=== PATIENT | male | born 1960 | race Caucasian/White ===

== ENCOUNTER → 2017-01-06 | Outpatient (CLI) | payer OTHER ==
[~2017-01-06] MED LIST: ASPI81TA28 PO; CITA20TA4 PO; DOXY-300 PO; DXY100 PO; FENO145T26 PO; FOLI1TAB7 PO; HYPO0.01 EXT; HYZ/50125 PO; LCTX PO; LISI-787 PO; PRED1SUS OPL; PRLSR20 PO
[2017-01-06 16:31] LABS: SYNOVIAL FLUID APPEARANCE CLOUDY; SYNOVIAL FLUID COLOR AMBER; SYNOVIAL FLUID MONONUC RELAT 11.2 %; SYNOVIAL FLUID POLYNUC RELAT 88.8 %
== END | disposition home or self-care (01) ==
LOC: C.LAB 14:54
DX: M70.41 Prepatellar bursitis, right knee (principal)

== ENCOUNTER 2017-01-08 00:18 | Inpatient (IN) | payer OTHER ==
[2017-01-08] VITALS (8 sets, daily range): BP systolic 135–170; BP diastolic 88–108; PULSE 55–65; TEMP 36.4–37; O2SAT 96–100; Ht 180.3 cm; Wt 110.6 kg
[~2017-01-08] VITALS: Ht 180.3 cm; Wt 110.6 kg
[~2017-01-08 00:18] MED LIST changes: -ASPI81TA28 PO; -DXY100 PO; -FENO145T26 PO; -FOLI1TAB7 PO; -HYZ/50125 PO; -LCTX PO
[2017-01-08] MEDS ORDERED: VANCOMYCIN 1GM/270ML NSS IV STA (00:37)
[2017-01-08] MEDS ORDERED: SODIUM CHLORIDE 0.9% 1000ML 1,000 ML IV STA (00:37)
[2017-01-08] MEDS ORDERED: KETOROLAC TROMETHAMINE 30 MG/ML VIAL IV STA (00:37)
[2017-01-08] MEDS ORDERED: FENO145T26 PO (01:01)
[2017-01-08] MEDS ORDERED: FOLI1TAB7 PO (01:01)
[2017-01-08] MEDS ORDERED: ASPI81TA28 PO (01:01)
[2017-01-08] MEDS ORDERED: HYZ/50125 PO (01:02)
[2017-01-08 01:08] LABS: BASO % 0.2 %; BASO ABS # 0.03 K/uL (0-0.2); COMPLETE YES; EOS % 0.6 %; HEMATOCRIT 44.8 % (42-52); IG% 0.4 %; LYMPH % 14.6 %; LYMPH ABS # 1.88 K/uL (1.2-3.4); MEAN CELL VOLUME 87.7 fL (80-100); MEAN CORPUSCULAR HEMOGLOBIN 31.1 pg (25-34); MEAN CORPUSCULAR HGB CONC 35.5 g/dl (32-36); MEAN PLATELET VOLUME 10.8 fL (7.4-10.4); MONO % 11.8 %; NEUT % 72.4 %; PLATELET COUNT 149 K/uL (130-400); RED BLOOD COUNT 5.11 M/uL (4.7-6.1); WHITE BLOOD COUNT 12.92 K/uL (4.8-10.8)
[2017-01-08 01:26] LABS: BUN/CREATININE RATIO 12.3 (10-20); CALCIUM 8.8 mg/dl (8.5-10.1); CREATININE 1.1 mg/dl (0.60-1.40); POTASSIUM 3.6 mmol/L (3.5-5.1)
--- NOTE | 2017-01-08 02:43 | History and Physical ---
History & Physical Date & Time of Service: Jan 08, 2017 at 02:43 . Chief Complaint: right knee pain . Primary Care Physician: Mg Jordan PA-C . History of Present Illness Source: patient, clinic records, hospital records 56-year-old male followed by Mg Jordan PA-C in [place]. History of hypertension, dyslipidemia, and other problems noted below. Fell 4 days prior to admission while playing with his grandchild at a playground and injured his right knee. No apparent abrasions or lacerations. Evaluated in ED at [facility] 2 days prior to admission. Referred to Dr. Kaba for Orthopedics consultation and was seen in his clinic yesterday. Right knee was aspirated and patent was placed on cephalexin. Aspirate demonstrated 60-49 WBCs (89% polys), 9000 RBCs. Gram stain demonstrated a few WBCs, no organisms. Culture results pending. Today he experienced worsening swelling and pain of the knee as well as fever and myalgias. Pain is severe and constant, aggravated by weightbearing or flexion. Minimal relief with ibuprofen. . Past Medical/Surgical History Chronic and Resolved Medical Problems: (2) Dyslipidemia Status: Chronic (3) GERD (gastroesophageal reflux disease) Status: Chronic (4) History of DVT of lower extremity Permanent Comment: 2013 - left lower extremity, associated with Achilles tendon repair Status: Chronic (5) History of renal calculi Status: Chronic (6) Hypertension Status: Chronic (7) MTHFR mutation Status: Chronic (8) Sleep apnea Status: Chronic Surgical Problems: (1) Status post Achilles tendon repair Status: Chronic (2) Status post cystoscopy Status: Chronic . Family History FATHER Coronary artery disease MOTHER Hypercholesterolemia Parkinson's disease Hypertension BROTHER Hypertension SISTER MTHFR deficiency Social History Smoking Status: Never Smoker Alcohol Use: none Marital Status: Immunizations History of Influenza Vaccine: Yes History of Tetanus Vaccine?: Yes Allergies Coded Allergies: Atenolol (Verified Allergy, Intermediate, bradycardia, 01/08/17) Lisinopril (Verified Allergy, Mild, cough, 01/08/17) Statins (Verified Adverse Reaction, Unknown, GENERALIZED PAIN, 01/08/17) Home Medications Scheduled Aspirin (Aspirin Ec), 81 MG PO DAILY Citalopram Hydrobromide (Citalopram Hydrobromide), 1 TAB PO DAILY Fenofibrate (Tricor ), 145 MG PO DAILY Folic Acid (Folvite), 1 MG PO DAILY Hctz/Losartan (Hyzaar 12.5MG/50MG), 1 TAB PO DAILY Omeprazole (Prilosec), 20 MG PO DAILY Review of Systems Constitutional: + fever, No weight loss Eyes: No worsening of vision, No diplopia ENT: + nasal symptoms, No sore throat Respiratory: No cough, No shortness of breath Cardiovascular: + edema (intermittent swelling left leg since DVT), No chest pain Abdomen: + nausea, No pain, No vomiting, No diarrhea, No GI bleeding Musculoskeletal: + joint pain (right knee), + muscle pain Genitourinary - Male: No hematuria, No dysuria Neurologic: + problem reported (occasional headaches) Endocrine: No excessive thirst, No excessive urination Hematologic / Lymphatic: No abnormal bleeding/bruising Integumentary: No rash, No new/changing skin lesions Physical Exam Vital Signs Date Time Temp Pulse Resp B/P (MAP) Pulse Ox O2 Delivery O2 Flow Rate FiO2 01/08/17 00:27 38.1 84 18 168/119 96 Room Air General Appearance: WD/WN, no apparent distress Head: normocephalic, atraumatic Eyes: normal inspection, PERRL, EOMI, sclerae normal (conjunctivae pink) ENT: normal ENT inspection, hearing grossly normal, pharynx normal Neck: supple, no adenopathy, thyroid normal, no JVD, trachea midline Respiratory/Chest: lungs clear, no respiratory distress, no accessory muscle use Cardiovascular: regular rate, rhythm, no edema, no gallop, no JVD, no murmur, normal peripheral pulses Abdomen/GI: normal bowel sounds, non tender, soft, no organomegaly, no pulsatile mass Extremities/Musculoskelatal: no calf tenderness, normal capillary refill, no pedal edema, + pertinent finding (moderate right prepatellar effusion with overlying erythema and warmth) 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 (PERRL, EOMI; no facial palsy; no dysarthria), no motor/sensory deficits (motor strength upper and lower extremities grossly intact), alert, normal mood/affect, normal reflexes ( plantar reflexes downgoing), oriented x 3 Skin: warm/dry, + pertinent finding (intense erythema overlying right knee) Lymphatic: no adenopathy (cervical) Diagnostics Laboratory Results Results Past 24 Hours Test 01/08/17 00:45 Range/Units White Blood Count 12.92 4.8-10.8 K/uL Red Blood Count 5.11 4.7-6.1 M/uL Hemoglobin 15.9 14.0-18.0 g/dL Hematocrit 44.8 42-52 % Mean Corpuscular Volume 87.7 80-100 fL Mean Corpuscular Hemoglobin 31.1 25-34 pg Mean Corpuscular Hemoglobin Concent 35.5 32-36 g/dl Platelet Count 149 130-400 K/uL Mean Platelet Volume 10.8 7.4-10.4 fL Neutrophils (%) (Auto) 72.4 % Lymphocytes (%) (Auto) 14.6 % Monocytes (%) (Auto) 11.8 % Eosinophils (%) (Auto) 0.6 % Basophils (%) (Auto) 0.2 % Neutrophils # (Auto) 9.35 1.4-6.5 K/uL Lymphocytes # (Auto) 1.88 1.2-3.4 K/uL Monocytes # (Auto) 1.53 0.11-0.59 K/uL Eosinophils # (Auto) 0.08 0-0.5 K/uL Basophils # (Auto) 0.03 0-0.2 K/uL RDW Standard Deviation 39.9 36.4-46.3 fL RDW Coefficient of Variation 12.4 11.5-14.5 % Immature Granulocyte % (Auto) 0.4 % Immature Granulocyte # (Auto) 0.05 0.00-0.02 K/uL Sodium Level 138 136-145 mmol/L Potassium Level 3.6 3.5-5.1 mmol/L Chloride Level 103 98-107 mmol/L Carbon Dioxide Level 26 21-32 mmol/L Anion Gap 9.0 3-11 mmol/L Blood Urea Nitrogen 14 7-18 mg/dl Creatinine 1.10 0.60-1.40 mg/dl Est Creatinine Clear Calc Drug Dose 93.4 ml/min Estimated GFR () 85.9 Estimated GFR (Non- 74.1 BUN/Creatinine Ratio 12.3 10-20 Random Glucose 170 70-99 mg/dl Calcium Level 8.8 8.5-10.1 mg/dl Microbiology Results 01/08/17 Blood Culture, Received Pending 01/08/17 Blood Culture, Received Pending Impression Assessment and Plan FEVER / RIGHT KNEE PAIN Suspect prepatellar bursitis. Worsening symptoms and exam despite outpatient therapy with cephalexin. Culture from right knee aspirate 01/06 pending. Temp in ED was 38.1. WBC 12,920. Hemodynamically stable. Does not appear to be septic. Blood cultures obtained in ED and patient received IV vancomycin. Continue vancomycin and add ceftriaxone for gram-negative coverage. Consult Orthopedics and Infectious Disease. HYPERTENSION Initial BP in ED 168/119, repeat 160/92. Continue losartan/HCTZ. Follow and titrate therapy. SLEEP APNEA Intolerant of CPAP. DYSLIPIDEMIA Continue fenofibrate. MTHFR MUTATION Continue folic acid. VTE PROPHYLAXIS / HISTORY DVT History of MTHFR mutation. History of DVT left lower extremity associated with repair of Achilles tendon. Initial prophylaxis with SCDs and ambulation. Add prophylactic dose anticoagulant once surgical disposition determined. RESUSCITATION STATUS Discussed with patient. No living will. Full code. DISPOSITION Admit to Med-Surg Unit. Expected discharge to home. Medical follow-up with Mg Jordan PA-C. . VTE Prophylaxis Given or contraindicated: SCD's
[2017-01-08] MEDS ORDERED: ACETAMINOPHEN 325 MG TAB PO PRN (02:45)
--- NOTE | 2017-01-08 03:23 | EMERGENCY ROOM VISIT NOTE ---
History Report prepared by Cyndee: Ilene Mayberry Under the Supervision of: Dr. Chad Huff D.O. First contact with patient: 00:32 Chief Complaint: KNEEPAIN Stated Complaint: KNEE PAIN History of Present Illness The patient is a 56 year old male who presents to the Emergency Room with complaints of worsening right knee pain starting 5 days ago. The patient fell while at the playground 5 days ago and fell onto his right knee. He had some pain at that time. He did not have any cuts. The pain improved, but then 2 days later he started having more pain. He went to the ED in [place] and was referred to ortho. He saw Dr. Kaba who jodie some fluid from the knee and started the patient on Keflex for infection. He started the Keflex 2 days ago. Today he had increased redness, swelling, and pain. He also developed a fever. He called his doctor who referred him to the ED. The pain worsens with movement. He has a history of DVT in his left leg after surgery. He denies any history of diabetes. Source of History: patient Onset: 5 days ago Position: knee (right) Quality: other (pain) Timing: worsening Modifying Factors (Worsening): movement Associated Symptoms: + fevers Note: Pt reports knee redness and swelling. Review of Systems See HPI for pertinent positives & negatives. A total of 10 systems reviewed and were otherwise negative. Past Medical & Surgical Medical Problems: (1) DVT (deep venous thrombosis) (2) Knee pain Family History No pertinent family history stated. Social History Smoking Status: Never Smoker Marital Status: Occupation Status: employed Current/Historical Medications Scheduled Aspirin (Aspirin Ec), 81 MG PO DAILY Citalopram Hydrobromide (Citalopram Hydrobromide), 1 TAB PO DAILY Fenofibrate (Tricor ), 145 MG PO DAILY Folic Acid (Folvite), 1 MG PO DAILY Hctz/Losartan (Hyzaar 12.5MG/50MG), 1 TAB PO DAILY Omeprazole (Prilosec), 20 MG PO DAILY Allergies Coded Allergies: Atenolol (Verified Allergy, Intermediate, bradycardia, 01/08/17) Lisinopril (Verified Allergy, Mild, cough, 01/08/17) Statins (Verified Adverse Reaction, Unknown, GENERALIZED PAIN, 01/08/17) Physical Exam Vital Signs Date Time Temp Pulse Resp B/P (MAP) Pulse Ox O2 Delivery O2 Flow Rate FiO2 01/08/17 00:27 38.1 84 18 168/119 96 Room Air Physical Exam CONSTITUTIONAL/VITAL SIGNS: Reviewed / noted above. GENERAL: Non-toxic in appearance. INTEGUMENTARY: Warm, dry, and [place]. HEAD: Normocephalic. EYES: without scleral icterus or trauma. ENT/OROPHARYNX: clear and moist. LYMPHADENOPATHY/NECK: Is supple without lymphadenopathy or meningismus. RESPIRATORY: Lungs clear and equal. CARDIOVASCULAR: Regular rate and rhythm. GI/ABDOMEN: Soft and nontender. No organomegaly or pulsatile mass. No rebound or guarding. Normal bowel sounds. EXTREMITIES: Warm and well perfused. Diffuse erythema of the right knee with swelling, ROM limited due to pain. BACK: No CVA tenderness. NEUROLOGICAL: Intact without focal deficits. PSYCHIATRIC: normal affect. MUSCULOSKELETAL: Normally developed with good muscle tone. Medical Decision & Procedures ER Provider Diagnostic Interpretation: X ray results and stated below per my interpretation and radiology review. Right knee X-ray: Small effusion. Soft tissue swelling. No fracture, dislocation. Chronic bifid patella. Laboratory Results 01/08/17 00:45 Red Blood Count 5.11, Mean Corpuscular Volume 87.7, Mean Corpuscular Hemoglobin 31.1, Mean Corpuscular Hemoglobin Concent 35.5, Mean Platelet Volume 10.8, Neutrophils (%) (Auto) 72.4, Lymphocytes (%) (Auto) 14.6, Monocytes (%) (Auto) 11.8, Eosinophils (%) (Auto) 0.6, Basophils (%) (Auto) 0.2, Neutrophils # (Auto ) 9.35, Lymphocytes # (Auto) 1.88, Monocytes # (Auto) 1.53, Eosinophils # (Auto ) 0.08, Basophils # (Auto) 0.03 01/08/17 00:45 Test 01/08/17 00:45 White Blood Count 12.92 K/uL (4.8-10.8) Red Blood Count 5.11 M/uL (4.7-6.1) Hemoglobin 15.9 g/dL (14.0-18.0) Hematocrit 44.8 % (42-52) Mean Corpuscular Volume 87.7 fL (80-100) Mean Corpuscular Hemoglobin 31.1 pg (25-34) Mean Corpuscular Hemoglobin Concent 35.5 g/dl (32-36) Platelet Count 149 K/uL (130-400) Mean Platelet Volume 10.8 fL (7.4-10.4) Neutrophils (%) (Auto) 72.4 % Lymphocytes (%) (Auto) 14.6 % Monocytes (%) (Auto) 11.8 % Eosinophils (%) (Auto) 0.6 % Basophils (%) (Auto) 0.2 % Neutrophils # (Auto) 9.35 K/uL (1.4-6.5) Lymphocytes # (Auto) 1.88 K/uL (1.2-3.4) Monocytes # (Auto) 1.53 K/uL (0.11-0.59) Eosinophils # (Auto) 0.08 K/uL (0-0.5) Basophils # (Auto) 0.03 K/uL (0-0.2) RDW Standard Deviation 39.9 fL (36.4-46.3) RDW Coefficient of Variation 12.4 % (11.5-14.5) Immature Granulocyte % (Auto) 0.4 % Immature Granulocyte # (Auto) 0.05 K/uL (0.00-0.02) Anion Gap 9.0 mmol/L (3-11) Est Creatinine Clear Calc Drug Dose 93.4 ml/min Estimated GFR () 85.9 Estimated GFR (Non- 74.1 BUN/Creatinine Ratio 12.3 (10-20) Calcium Level 8.8 mg/dl (8.5-10.1) Laboratory results as stated above per my review. Medications Administered Medications (Trade) Dose Ordered Sig/Stepan Route Start Time Stop Time Status Last Admin Dose Admin Ketorolac Tromethamine (Toradol Inj) 30 mg NOW STAT IV 01/08/17 00:37 01/08/17 00:39 DC 01/08/17 00:50 30 MG Sodium Chloride 1,000 ml @ 999 mls/hr Q1H1M STAT IV 01/08/17 00:37 01/08/17 01:37 DC 01/08/17 00:50 999 MLS/HR Vancomycin HCl (Vancomycin 1gm/ 270ml Nss) 1 gm NOW STAT IV 01/08/17 00:37 01/08/17 00:39 DC 01/08/17 00:55 1 GM ED Course 0033: Previous medical records were reviewed. The patient was evaluated in room A3. A complete history and physical examination was performed. 0037: Vancomycin HCl 1 gm IV, NSS 1000 ml @ 999 mls/hr IV, Toradol Inj 30 mg IV. 0225: On reevaluation, the patient is resting comfortably. I discussed the results and findings with him. He verbalized agreement of the treatment plan. The patient will be evaluated for further management and care. 0234: I discussed the patient's case with Stehpon Foy hospitalist. The patient will be evaluated for further treatment and disposition. Medical Decision Differential diagnosis: Etiologies such as cellulitis, abscess, MRSA infection, DVT, necrotizing fasciitis, dermatitis, drug eruption, as well as others were entertained. This is a 56-year-old male who presents to the ED with a chief complaint of a right knee infection. The patient states that about 4 days ago, he fell at a park onto his right knee. 2 days ago he was seen at a emergency department and [place] and felt to have an issue with his patella. He saw Dr. Kaba less than 48 hours ago and was felt to have a cellulitis/infection. He was found to have around 600 WBCs on a fluid analysis of the prepatellar bursa versus joint. The patient presents today with significant increase in redness, swelling and pain in the right knee. This is despite being on Keflex for about 36 hours. Exam is noted above. There is diffuse erythema, swelling and discomfort with movement of the right knee. The patient was started on IV vancomycin. White blood cell count was slightly elevated. Chemistry panel was unremarkable. The patient has a fever 38.1. He was given IV fluids and IV Toradol. He will be seen by the hospitalist for further inpatient evaluation and care. Medication Reconcilliation Current Medication List: was personally reviewed by me Blood Pressure Screening Patient's blood pressure: Elevated blood pressure Will be addressed by hospitalist. Consults Time Called: [phone] Consulting Physician: Stephon Foy hospitalist Returned Call: [phone] Discussed the patient's case. The patient will be evaluated for further treatment and disposition. Impression Primary Impression: Cellulitis of right knee Additional Impression: Failure of outpatient treatment Scribe Attestation The scribe's documentation has been prepared under my direction and personally reviewed by me in its entirety. I confirm that the note above accurately reflects all work, treatment, procedures, and medical decision making performed by me. Departure Information Dispostion Being Evaluated By Hospitalist Referrals Mg Jordan PA-C (PCP) Patient Instructions My [facility] Problem Qualifiers
[2017-01-08] MEDS ORDERED: VANCOMYCIN INJ 0 MG in SODIUM CHLORIDE 0.9% 250ML 250 ML IV SCH (04:30)
[2017-01-08] MEDS ORDERED: OXYCODONE HCL IR 5 MG TAB (IMMEDIATE RELEASE) PO PRN ×2 (04:30)
[2017-01-08] MEDS ORDERED: INFLUENZA ADMINISTRATION CHARGE ONE (04:45)
[2017-01-08] MEDS ORDERED: INFLUENZA VIRUS QUAD VACCINE 0.5 ML SYR IM. ONE (04:45)
[2017-01-08 06:09] LABS: PARTIAL THROMBOPLASTIN RATIO 1.1; PROTHROMBIN TIME (PATIENT) 10.7 SECONDS (9.0-12.0)
[2017-01-08] MEDS: CEFTRIAXONE SOD INJ 2,000 MG in DEXTROSE 5% 50ML 50 ML IV SCH (06:09)
[2017-01-08] MEDS ORDERED: VANCOMYCIN CONSULT ACTIVE PRN (06:15)
--- NOTE | 2017-01-08 06:25 | DIAGNOSTIC IMAGING REPORT ---
R KNEE 1 OR 2 VIEWS ROUTINE CLINICAL HISTORY: infection pain COMPARISON: None. DISCUSSION: Prepatellar soft tissue edema. No acute bony abnormality. No significant joint effusion. No evidence for bony destructive process. IMPRESSION: Prepatellar soft tissue edema. No acute bony abnormality. The above report was generated using voice recognition software. It may contain grammatical, syntax or spelling errors. Electronically signed by: Mike Rojas M.D. 01/08/2017 6:24 AM Dictated Date/Time: 01/08/2017 6:23 AM
[2017-01-08 06:27] LABS: BUN/CREATININE RATIO 13.2 (10-20); C-REACTIVE PROTEIN 7.74 mg/dl (0-0.29); CALCIUM 8.5 mg/dl (8.5-10.1); POTASSIUM 3.6 mmol/L (3.5-5.1)
[2017-01-08] MEDS: VANCOMYCIN INJ 1,750 MG in SODIUM CHLORIDE 0.9% 500ML 500 ML IV SCH ×2 (07:22→18:11)
[2017-01-08] MEDS: IBUPROFEN 600 MG TAB PO PRN ×2 (07:22→13:33)
[2017-01-08] MEDS: PANTOprazole SOD 40 MG TAB PO SCH (07:22)
[2017-01-08] MEDS: LOSARTAN/HCTZ 50-12.5 EA TAB PO SCH (07:22)
[2017-01-08] MEDS: FENOFIBRATE 145 MG TAB PO SCH (07:22)
[2017-01-08] MEDS: ASPIRIN 81 MG ECTAB PO SCH (07:22)
--- NOTE | 2017-01-08 09:42 | ORTHOPEDIC CONSULTATION REPORT ---
DATE OF CONSULTATION: 01/08/2017 CHIEF COMPLAINT: Right knee pain, swelling and erythema. HISTORY OF PRESENT ILLNESS: The patient is a 56-year-old male known to Dr. Kaba and me for his right knee. He states he had a fall on some playground equipment directly to the anterior aspect of the right knee on 01/03/2017. He states he started having pain and swelling in his knee on January 05. He was seen in our office by Dr. Kaba and myself on January 06. He had evidence of a septic prepatellar bursitis. He had an aspirate about 10 mL of the serous, cloudy fluid. There was no gross purulence. This was sent to the hospital lab and culture is currently negative. He was given a prescription for oral cephalexin and asked to follow up in approximately 1 week. I received a call last evening stating his knee was worsening and he had developed a fever. He was instructed to go to the [facility] ED for probable admission. This morning, he is resting comfortably in bed. He has received IV vancomycin and IV ceftriaxone. He states that the knee feels about the same. He is afebrile. The nurse in the ED had drawn a line about the knee in the area of demarcation. He does not have significant erythema. He does not have any prepatellar fluid. Due to the swelling in his knee, it is difficult to assess if he has an intra-articular effusion. He has pain with any motion about the knee. His white count is slightly elevated. His sed rate is within normal limits. His C-reactive protein is elevated as well. ASSESSMENT: Septic prepatellar bursitis, right knee. PLAN: Continue IV antibiotics. The patient will be discussed with Dr. Morrison and then he will see and evaluate him later today as well. We will proceed as indicated.
--- NOTE | 2017-01-08 10:04 | Pharmacy Progress Note ---
Pharmacy Antibiotic Consult Date of Service: Jan 08, 2017. Pharmacy Dosing Scope Pharmacy is consulted to initiate vancomycin IV dosing therapy, order appropriate labs and adjust drug dose/frequency. Subjective The patient is a 56 year old male admitted on Jan 08, 2017 at 02:44. Objective Height (Feet): 5 Height (Inches): 11.00 Weight (Kilograms): 110.600 Lab Results (24hrs): Test 01/08/17 00:45 01/08/17 05:39 White Blood Count 12.92 K/uL (4.8-10.8) Red Blood Count 5.11 M/uL (4.7-6.1) Hemoglobin 15.9 g/dL (14.0-18.0) Hematocrit 44.8 % (42-52) Mean Corpuscular Volume 87.7 fL (80-100) Mean Corpuscular Hemoglobin 31.1 pg (25-34) Mean Corpuscular Hemoglobin Concent 35.5 g/dl (32-36) Platelet Count 149 K/uL (130-400) Mean Platelet Volume 10.8 fL (7.4-10.4) Neutrophils (%) (Auto) 72.4 % Lymphocytes (%) (Auto) 14.6 % Monocytes (%) (Auto) 11.8 % Eosinophils (%) (Auto) 0.6 % Basophils (%) (Auto) 0.2 % Neutrophils # (Auto) 9.35 K/uL (1.4-6.5) Lymphocytes # (Auto) 1.88 K/uL (1.2-3.4) Monocytes # (Auto) 1.53 K/uL (0.11-0.59) Eosinophils # (Auto) 0.08 K/uL (0-0.5) Basophils # (Auto) 0.03 K/uL (0-0.2) RDW Standard Deviation 39.9 fL (36.4-46.3) RDW Coefficient of Variation 12.4 % (11.5-14.5) Immature Granulocyte % (Auto) 0.4 % Immature Granulocyte # (Auto) 0.05 K/uL (0.00-0.02) Sodium Level 138 mmol/L (136-145) 139 mmol/L (136-145) Potassium Level 3.6 mmol/L (3.5-5.1) 3.6 mmol/L (3.5-5.1) Chloride Level 103 mmol/L (98-107) 104 mmol/L (98-107) Carbon Dioxide Level 26 mmol/L (21-32) 28 mmol/L (21-32) Anion Gap 9.0 mmol/L (3-11) 7.0 mmol/L (3-11) Blood Urea Nitrogen 14 mg/dl (7-18) 13 mg/dl (7-18) Creatinine 1.10 mg/dl (0.60-1.40) 1.00 mg/dl (0.60-1.40) Est Creatinine Clear Calc Drug Dose 93.4 ml/min 103.1 ml/min Estimated GFR () 85.9 96.4 Estimated GFR (Non- 74.1 83.2 BUN/Creatinine Ratio 12.3 (10-20) 13.2 (10-20) Random Glucose 170 mg/dl (70-99) 134 mg/dl (70-99) Calcium Level 8.8 mg/dl (8.5-10.1) 8.5 mg/dl (8.5-10.1) Erythrocyte Sedimentation Rate 11 mm/hr (0-14) Prothrombin Time 10.7 SECONDS (9.0-12.0) Prothromb Time International Ratio 1.0 (0.9-1.1) Activated Partial Thromboplast Time 28.2 SECONDS (21.0-31.0) Partial Thromboplastin Ratio 1.1 C-Reactive Protein 7.74 mg/dl (0-0.29) Assessment & Plan Patient started on vancomycin and rocephin for skin/soft tissue infection. BC x 2 are pending. Seen by ortho in clinic yesterday, placed on keflex ; right knee aspirated. Cultures pending. Vancomycin: * Received LD of vancomycin 1000 mg x 1 in the ED this am * Started on MD of vancomycin 1750 mg iv (~15 mg/kg) iv q 10 hrs for estimated trough ~15-20 mcg/ml * Estimated kinetics: t1/2~9 hrs, ke~0.070 hr-1, CrCl ~93 ml/min * Plan to obtain trough prior to the 0400 dose on 01/09 to ensure therapeutic Pharmacy will continue to follow and will adjust dose/frequency as necessary. Thank you
--- NOTE | 2017-01-08 11:10 | Progress Note ---
Progress Note Date of Service Jan 08, 2017. Progress Note ID Consult dictated #[id number] A/P: 1. Septic Arthritis, right knee 2. Fever 3. Leukocytosis -continue IV abx for now, follow cultures -will follow, thank you
--- NOTE | 2017-01-08 12:11 | INFECT. DISEASE CONSULTATION ---
DATE OF CONSULTATION: 01/08/2017 HISTORY OF PRESENT ILLNESS: This is a 56-year-old gentleman who was admitted after he had worsening right knee pain. He states that he fell while at play ground and had trauma to the right knee. He then noticed erythema, swelling and tenderness. He was seen by orthopedics in the office and a joint aspiration was obtained on the . Growth from this is negative at this time. He was placed on Keflex and was instructed to return to the office early next week; however, over the weekend, he noticed worsening erythema and pain around the knee and subsequently came to the hospital. He was placed empirically on vancomycin and Rocephin and appears to be tolerating these well. Blood cultures were obtained and are pending. He had a mild leukocytosis of 12.9 and a sed rate of 11. He is tolerating antibiotics well. He has had subjective fevers at home and his T-max overnight was 38.1. He states today he is feeling significantly better. He states that the erythema has reduced somewhat; however, he is still experiencing tenderness and swelling in the area. There is no definitive plan for a washout of his knee, but orthopedics is following in the hospital. He currently denies any chest pain, cough, shortness of breath, nausea, vomiting, diarrhea or abdominal pain. His appetite is stable. All remaining review of systems reviewed and are unremarkable. PAST MEDICAL HISTORY: Significant for high cholesterol, GERD, DVT, renal calculi, hypertension and sleep apnea. PAST SURGICAL HISTORY: Significant for cystoscopy and Achilles tendon repair. FAMILY HISTORY: Noncontributory. SOCIAL HISTORY: Negative for tobacco use, alcohol use or drug use. ALLERGIES: INCLUDE ATENOLOL, STATIN DRUGS AND LISINOPRIL. CURRENT MEDICATIONS: Include Celexa, aspirin, TriCor, folic acid, Hyzaar, Protonix, vancomycin, ceftriaxone, Motrin, Roxicodone and Tylenol. PHYSICAL EXAMINATION: VITAL SIGNS: T-max is 38.1, current temperature is 36.7, pulse 65, respiratory rate 18, blood pressure 146/88, and oxygen saturation is 99% on room air. GENERAL: He is awake, alert and oriented x3. He is in no acute distress. HEENT: Mucous membranes are moist. Extraocular muscles are intact. HEART: Regular. LUNGS: Clear bilaterally. ABDOMEN: Soft, nontender, and nondistended. EXTREMITIES: There is no lower extremity edema bilaterally. SKIN: Without rash. Examination of the right knee does reveal some mild erythema, but it is reduced from 1 that was drawn on the patient's knee yesterday. He does have some warmth and tenderness laterally. There is edema compared to his left knee. LABORATORY STUDIES: CBC reveals a white blood cell count of 12.9, hemoglobin 15.9, and platelets are 149. Sed rate is normal at 11. Chemistry panel reveals a sodium of 139, potassium 3.6, chloride 104, bicarbonate 28, BUN 13, creatinine 1, and glucose is 134. CRP is 7.7. Hep C screen is negative. Blood cultures are pending. Knee aspirate from the is negative to date. Knee x-ray was done on the and shows no abscess or destructive bony process. ASSESSMENT AND PLAN: Septic arthritis. He will continue on empiric antibiotics pending the results of aspirate and blood cultures. He does have some improvement and hopefully, can be transitioned to oral antibiotics in the near future. He currently does not have any plans for additional surgical procedure; however, if this changes, her operative cultures should be obtained. We will follow along with you. Thank you for this consultation.
--- NOTE | 2017-01-08 13:50 | ORTHOPEDIC CONSULTATION ---
DATE OF CONSULTATION: 01/08/2017 HISTORY OF PRESENT ILLNESS: This is a 56-year-old gentleman seen at the request of Dr. Bhagat and Dr. Patterson for right anterior knee pain. Apparently, he was playing with his grandchild at playground last Monday and fell on a piece of playground equipment. Approximately 48 hours later, he started to have some swelling and pain with erythema surrounding the area. He was seen by Dr. Sendy Coffey for orthopedic consultation in clinic. The knee was aspirated and had no organisms and no growth to date. He was placed on oral cephalexin. He had worsening of swelling and pain in the knee with some fevers and muscle aches. He had difficulty with ambulation due to pain and swelling of the right knee. He presented to [facility] ER at which point he was admitted. He is placed on IV vancomycin and ceftriaxone with consultations made for orthopedics and infectious disease. The patient has had improvement in his symptoms over the last several hours and has noted no recurrence of fevers or chills at this point. PAST MEDICAL HISTORY: Dyslipidemia, reflux, history of DVT lower extremity, history of renal calculus, hypertension, MTHFR mutation, sleep apnea. PAST SURGICAL HISTORY: Achilles tendon repair and cystoscopy. ALLERGIES: ATENOLOL WITH BRADYCARDIA, LISINOPRIL WITH A MILD COUGH, STATINS WITH GENERALIZED PAIN. MEDICATIONS: Please see the medication list in the medical record. SOCIAL HISTORY: He denies tobacco, alcohol, or drug use. He is . He works for [employer], delivering parts. PHYSICAL EXAMINATION: GENERAL: This is a pleasant 56-year-old gentleman who is lying supine in his hospital room bed. He is alert and oriented x3. Speech clear and fluent. Affect is appropriate. Cranial nerves II-XII are grossly intact with right eye tracking malalignment. He has glasses. EXTREMITIES: Examination of the right knee demonstrates skin is warm, dry and intact. There is some mild erythema over the anterior aspect of the patella. There was a line of demarcation with erythema associated that appears to have receded from the line of demarcation by approximately 1.5 cm circumferentially. He has no obvious effusion within the knee. He has no fluctuance, no purulence, no discharge or drainage. There is no palpable fluid compartment or cyst noted around the patella or the patellofemoral articulation. Collateral ligaments function is intact with varus and valgus stress testing. Negative anterior and posterior drawer testing. He has range of motion 0-45 degrees, limited by pain and guarding. IMAGING STUDIES: Radiographs demonstrate no obvious fractures, no acute bony abnormality, no significant joint effusion, no evidence of bony destruction process. Mild prepatellar soft tissue edema. IMPRESSION: 1. Right knee prepatellar bursitis, possible septic bursitis without clear evidence of bacterial contamination. 2. Cellulitis, right anterior knee. RECOMMENDATION: Continued IV antibiotics including ceftriaxone and vancomycin. Await recommendations from infectious disease. We will continue to monitor with you as the prepatellar bursitis may or may not coalesce into a drainable abscess or fluid collection. Limited weightbearing as tolerated for bathroom privileges. Thank you for the opportunity of consult and care on this patient.
--- NOTE | 2017-01-08 15:08 | Progress Note ---
Internal Med Progress Note Date of Service: Jan 08, 2017. Provider Documentation: SUBJECTIVE: The patient was seen and examined Right Knee pain,swelling and Redness are better Denies any Fever,Chills OBJECTIVE: Vital Signs-as noted below Exam: General-NO distress at rest Eyes-normal ENT-normal Neck-Supple Lungs-Clear to ausucltate bilaterally Heart-Regular,no murmur Abdomen-Benign,no masses,bowel sound present Extremities-Left Leg -OK Right Knee is swollen with redness and warmth anteriorly Overall area of inflammation is reduced Neuro-AAOx3 Lab data as noted below. ASSESSMENT & PLAN: Right Knee Pain and Swelling with Cellulitis Knee joint seems to be spared S/P recent fall with injury to right patella Culture from right knee aspirate 01/06 pending. Suspect prepatellar bursitis. Worsening symptoms and exam despite outpatient therapy with cephalexin. Temp in ED was 38.1. WBC 12,920. Hemodynamically stable. Does not appear to be septic and doubt any Septic Arthritis Blood cultures obtained in ED and patient received IV vancomycin. Continue vancomycin and add ceftriaxone for gram-negative coverage. Consult Orthopedics and Infectious Disease-appreciate Input. HYPERTENSION Initial BP in ED 168/119, repeat 160/92. Continue losartan/HCTZ. Follow and titrate therapy. SLEEP APNEA Intolerant of CPAP. DYSLIPIDEMIA Continue fenofibrate. MTHFR MUTATION Continue folic acid. VTE PROPHYLAXIS / HISTORY DVT History of MTHFR mutation. History of DVT left lower extremity associated with repair of Achilles tendon. Initial prophylaxis with SCDs and ambulation. Add prophylactic dose anticoagulant once surgical disposition determined. RESUSCITATION STATUS Discussed with patient. No living will. Full code. DISPOSITION Admit to Med-Surg Unit. Expected discharge to home. Medical follow-up with Mg Jordan PA-C. . Vital Signs: Date Time Temp Pulse Resp B/P (MAP) Pulse Ox O2 Delivery O2 Flow Rate FiO2 01/08/17 08:46 146/88 (107) 01/08/17 08:00 Room Air 01/08/17 07:52 159/100 (119) 01/08/17 07:21 36.7 65 18 170/108 (128) 99 168/102 (124) 01/08/17 04:46 37.0 59 18 157/99 (118) 99 Room Air 01/08/17 03:39 66 16 135/82 98 Room Air 01/08/17 03:21 36.4 60 18 168/92 96 Room Air 01/08/17 00:27 38.1 84 18 168/119 96 Room Air Lab Results: Results Past 24 Hours Test 01/08/17 00:45 01/08/17 05:39 Range/Units White Blood Count 12.92 4.8-10.8 K/uL Red Blood Count 5.11 4.7-6.1 M/uL Hemoglobin 15.9 14.0-18.0 g/dL Hematocrit 44.8 42-52 % Mean Corpuscular Volume 87.7 80-100 fL Mean Corpuscular Hemoglobin 31.1 25-34 pg Mean Corpuscular Hemoglobin Concent 35.5 32-36 g/dl Platelet Count 149 130-400 K/uL Mean Platelet Volume 10.8 7.4-10.4 fL Neutrophils (%) (Auto) 72.4 % Lymphocytes (%) (Auto) 14.6 % Monocytes (%) (Auto) 11.8 % Eosinophils (%) (Auto) 0.6 % Basophils (%) (Auto) 0.2 % Neutrophils # (Auto) 9.35 1.4-6.5 K/uL Lymphocytes # (Auto) 1.88 1.2-3.4 K/uL Monocytes # (Auto) 1.53 0.11-0.59 K/uL Eosinophils # (Auto) 0.08 0-0.5 K/uL Basophils # (Auto) 0.03 0-0.2 K/uL RDW Standard Deviation 39.9 36.4-46.3 fL RDW Coefficient of Variation 12.4 11.5-14.5 % Immature Granulocyte % (Auto) 0.4 % Immature Granulocyte # (Auto) 0.05 0.00-0.02 K/uL Sodium Level 138 139 136-145 mmol/L Potassium Level 3.6 3.6 3.5-5.1 mmol/L Chloride Level 103 104 98-107 mmol/L Carbon Dioxide Level 26 28 21-32 mmol/L Anion Gap 9.0 7.0 3-11 mmol/L Blood Urea Nitrogen 14 13 7-18 mg/dl Creatinine 1.10 1.00 0.60-1.40 mg/dl Est Creatinine Clear Calc Drug Dose 93.4 103.1 ml/min Estimated GFR () 85.9 96.4 Estimated GFR (Non- 74.1 83.2 BUN/Creatinine Ratio 12.3 13.2 10-20 Random Glucose 170 134 70-99 mg/dl Calcium Level 8.8 8.5 8.5-10.1 mg/dl Erythrocyte Sedimentation Rate 11 0-14 mm/hr Prothrombin Time 10.7 9.0-12.0 SECONDS Prothromb Time International Ratio 1.0 0.9-1.1 Activated Partial Thromboplast Time 28.2 21.0-31.0 SECONDS Partial Thromboplastin Ratio 1.1 C-Reactive Protein 7.74 0-0.29 mg/dl Hepatitis C Antibody Screen NEG NEG Microbiology Results 01/08/17 Blood Culture, Received Pending 01/08/17 Blood Culture, Received Pending
[2017-01-08] MEDS: CITALOPRAM 20 MG TAB PO SCH (20:34)
[2017-01-09] VITALS: O2SAT 98
[2017-01-09] MEDS: VANCOMYCIN INJ 1,750 MG in SODIUM CHLORIDE 0.9% 500ML 500 ML IV SCH ×2 (03:22→13:35)
[2017-01-09] MEDS ORDERED: VANCOMYCIN TROUGH SCH (03:30)
[2017-01-09 03:55] LABS: HEMATOCRIT 43.2 % (42-52); MEAN CELL VOLUME 89.3 fL (80-100); MEAN CORPUSCULAR HGB CONC 34.7 g/dl (32-36); MEAN PLATELET VOLUME 11.4 fL (7.4-10.4); PLATELET COUNT 144 K/uL (130-400); RED BLOOD COUNT 4.84 M/uL (4.7-6.1); WHITE BLOOD COUNT 9.47 K/uL (4.8-10.8)
[2017-01-09 04:13] LABS: BUN/CREATININE RATIO 10.9 (10-20); CALCIUM 8.8 mg/dl (8.5-10.1); CREATININE 0.96 mg/dl (0.60-1.40); POTASSIUM 3.7 mmol/L (3.5-5.1)
[2017-01-09] MEDS: CEFTRIAXONE SOD INJ 2,000 MG in DEXTROSE 5% 50ML 50 ML IV SCH (06:29)
[2017-01-09] MEDS: IBUPROFEN 600 MG TAB PO PRN ×2 (07:35→22:07)
[2017-01-09] MEDS: PANTOprazole SOD 40 MG TAB PO SCH (07:35)
[2017-01-09] MEDS: FENOFIBRATE 145 MG TAB PO SCH (07:35)
[2017-01-09] MEDS: LOSARTAN/HCTZ 50-12.5 EA TAB PO SCH (07:35)
[2017-01-09] MEDS: ASPIRIN 81 MG ECTAB PO SCH (07:35)
[2017-01-09 07:41] VITALS: BP_SYST 146; BP_SYST 151; BP_DIAS 95; BP_DIAS 96; PULSE 59; TEMP 36.9; O2SAT 97
--- NOTE | 2017-01-09 09:41 | Pharmacy Progress Note ---
Pharmacy Abx Dose Progress Nt Date of Service Jan 09, 2017. Pharmacy Dosing Scope The patient is currently receiving the following antimicrobial agents per Pharmacy consult: Vancomycin 1750mg IV every 10 hours Objective Height (Feet): 5 Height (Inches): 11.00 Weight (Kilograms): 110.600 Vital Signs (Past 12Hrs) Vital Signs Past 12 Hours Date Time Temp Pulse Resp B/P (MAP) Pulse Ox O2 Delivery O2 Flow Rate FiO2 01/09/17 09:00 Room Air 01/09/17 07:41 36.9 59 18 151/96 (114) 97 Room Air 146/95 (112) 01/09/17 00:00 98 Room Air 01/08/17 22:52 37.0 57 18 135/88 (104) 98 Room Air Lab Results (24Hrs) Laboratory Tests (24 Hours) Test 01/09/17 03:21 White Blood Count 9.47 K/uL (4.8-10.8) Micro Results Date/Time Source Procedure Growth Status 01/08/17 00:50 Blood Blood Culture - Preliminary NO GROWTH TO DATE. Resulted 01/08/17 00:45 Blood Blood Culture - Preliminary NO GROWTH TO DATE. Resulted Risk Factors for Resistance * Antimicrobial use within the last 90 days -- recent outpatient Keflex Assessment & Plan Assessment 56 year old male receiving Vancomycin for treatment of R knee cellulitis, possible prepatellar bursitis, r/o septic arthritis Day # 2 of antimicrobial therapy * ID is on consult and following the patient * Patient is improving per recent progress notes. Patient now afebrile, WBC's trending down. Dr. Patterson doubts septic arthritis. Blood cultures show no growth to date. Given these clinical factors, the patient appears to be responding to current regimen. Plan Vancomycin IV * Trough level of 12.9 mcg/mL is therapeutic -- this is an early level not yet reflective of steady state; Css may be higher * Continue dose of 1750 mg (~16mg/kg) IV every 10 hours * Goal trough level for cellulitis : 10 to 15 mcg/mL (unlikely sepsis, therefore not targeting higher goal) * Trough level ordered for: 01/10/17 @ 0930 -- recheck Vancomycin at steady state to determine if change to dosing regimen needed Pharmacy will continue to follow and will adjust dose/frequency as necessary. Thank you.
--- NOTE | 2017-01-09 10:58 | Progress Note ---
Subjective Date of Service: Jan 09, 2017. Subjective Pt evaluation today including: conversation w/ patient, physical exam, chart review, lab review pt seen in followup, no complaints. tolerating abx. no plans for surgery. outpt culture negative. blood cultures negative. less knee pain and swelling, difficulty with bending. able to wt bear but using walker. afebrile. wbc nml. All remaining ros reviewed and are negative. Problem List Medical Problems: (1) Cellulitis of right knee Status: Acute (2) Failure of outpatient treatment Status: Acute Objective Vital Signs Date Time Temp Pulse Resp B/P (MAP) Pulse Ox O2 Delivery O2 Flow Rate FiO2 01/09/17 09:00 Room Air 01/09/17 07:41 36.9 59 18 151/96 (114) 97 Room Air 146/95 (112) 01/09/17 00:00 98 Room Air 01/08/17 22:52 37.0 57 18 135/88 (104) 98 Room Air 01/08/17 16:10 158/89 (112) 01/08/17 16:00 Room Air 01/08/17 15:32 36.7 55 20 167/102 (123) 100 Room Air Physical Exam General Appearance: WD/WN, no apparent distress Eyes: normal inspection, EOMI Neck: supple Respiratory/Chest: lungs clear, normal breath sounds, no respiratory distress Cardiovascular: regular rate, rhythm, no edema Abdomen: non tender, soft Extremities: non-tender, normal inspection, no pedal edema Neurologic/Psychiatric: alert, oriented x 3 Skin: normal color Comments: right knee with less erythema, edema. still min warmth. no open wounds. less tender today Laboratory Results Item Value Date Time Gram Stain - Final Complete 01/06/17 1410 Joint Fluid/Space (Synovial) Knee Right Blood Culture - Preliminary Resulted 01/08/17 0045 Blood NO GROWTH TO DATE. Blood Culture - Preliminary Resulted 01/08/17 0050 Blood NO GROWTH TO DATE. Last 24 Hours Test 01/09/17 03:21 White Blood Count 9.47 K/uL Red Blood Count 4.84 M/uL Hemoglobin 15.0 g/dL Hematocrit 43.2 % Mean Corpuscular Volume 89.3 fL Mean Corpuscular Hemoglobin 31.0 pg Mean Corpuscular Hemoglobin Concent 34.7 g/dl RDW Standard Deviation 40.6 fL RDW Coefficient of Variation 12.5 % Platelet Count 144 K/uL Mean Platelet Volume 11.4 fL Sodium Level 140 mmol/L Potassium Level 3.7 mmol/L Chloride Level 104 mmol/L Carbon Dioxide Level 31 mmol/L Anion Gap 5.0 mmol/L Blood Urea Nitrogen 10 mg/dl Creatinine 0.96 mg/dl Est Creatinine Clear Calc Drug Dose 107.3 ml/min Estimated GFR () 101.3 Estimated GFR (Non- 87.4 BUN/Creatinine Ratio 10.9 Random Glucose 130 mg/dl Calcium Level 8.8 mg/dl Vancomycin Level Trough 12.9 mcg/ml Assessment and Plan (1) Cellulitis of right knee Assessment & Plan: aspirate culture negative and final. blood cultures negative. remains on IV abx. was on keflex boat captain. would prefer to continue on ctx at time of d/c however pt would prefer to continue with po abx at time of d/c due to work related issues with picc line. would suggest doxy 100mg po bid for min 21 days. no plan for OR at this time.
--- NOTE | 2017-01-09 14:21 | Orthopedic Progress Note ---
Orthopedic Progress Note Date of Service Jan 09, 2017. Subjective Reports: feeling well, Denies: chest pain, SOB, nausea / vomiting, light headedness Additional Notes: OVERALL KNEE IS FEELING BETTER. HE IS HAVING LESS SWELLING AND DECREASED REDNESS. STILL SLIGHT PAIN WITH MOVEMENT AND WEIGHT BEARING. Objective calves soft nontender, N/V intact, capillary refill less than 2 sec., A&O x3 MILD ERYTHEMA AT THE KNEE. REDNESS HAS RECEDED THE PREVIOUS MARKINGS SIGNIFICANTLY. MILD SWELLING, NO FLUID COLLECTION Date Time Temp Pulse Resp B/P (MAP) Pulse Ox O2 Delivery O2 Flow Rate FiO2 01/09/17 09:00 Room Air 01/09/17 07:41 36.9 59 18 151/96 (114) 97 Room Air 146/95 (112) 01/09/17 00:00 98 Room Air 01/08/17 22:52 37.0 57 18 135/88 (104) 98 Room Air 01/08/17 16:10 158/89 (112) 01/08/17 16:00 Room Air 01/08/17 15:32 36.7 55 20 167/102 (123) 100 Room Air Laboratory Results 24 Hours: Test 01/09/17 03:21 Hematocrit 43.2 % Hemoglobin 15.0 g/dL Assessment & Plan Assessment: PREPATELLAR BURSITIS RIGHT KNEE Plan: CULTURES NEGATIVE AND FINAL CURRENTLY ON IV VANCO. WILL LIKELY BE DISCHARGED ON DOXY PER ID. WBAT PAIN MANAGEMENT NO NEED FOR SURGICAL INTERVENTION AT THIS TIME. ORTHOPEDICS WILL SIGN OFF PATIENT CAN FOLLOW UP PRN.
--- NOTE | 2017-01-09 14:23 | Consultant Recommendations ---
Electroplating Laborer Recommendations Date of Service Jan 09, 2017. Electroplating Laborer Recommendations CONTINUE ANTIBIOTICS PER DR. LAWRENCE'S RECOMMENDATIONS WEIGHT BEAR TOLERATED, MAY USE WALKER/CRUTCHES IF NEEDED CAN FOLLOW UP NEEDED OR IF SYMPTOMS WORSEN. DR. SOFIA- [phone]
[2017-01-09 15:16] VITALS: BP 177/85; PULSE 53; TEMP 36.4; O2SAT 97
--- NOTE | 2017-01-09 15:25 | Progress Note ---
Internal Med Progress Note Date of Service: Jan 09, 2017. Provider Documentation: SUBJECTIVE: The patient was seen and examined Right Knee pain,swelling and Redness are better Denies any Fever,Chills Clinically a lot better OBJECTIVE: Vital Signs-as noted below Exam: General-NO distress at rest Eyes-normal ENT-normal Neck-Supple Lungs-Clear to ausucltate bilaterally Heart-Regular,no murmur Abdomen-Benign,no masses,bowel sound present Extremities-Left Leg -OK Right Knee is swollen with redness and warmth anteriorly Overall area of inflammation is reduced further Neuro-AAOx3 Lab data as noted below. ASSESSMENT & PLAN: Right Knee Pain and Swelling with Cellulitis Knee joint seems to be spared S/P recent fall with injury to right patella Culture from right knee aspirate 01/06 pending. Suspect prepatellar bursitis. Worsening symptoms and exam despite outpatient therapy with cephalexin. Temp in ED was 38.1. WBC 12,920. Hemodynamically stable. Does not appear to be septic and doubt any Septic Arthritis Blood cultures obtained in ED and patient received IV vancomycin. Continue vancomycin and add ceftriaxone for gram-negative coverage. Consult Orthopedics and Infectious Disease-appreciate Input. Likely to be discharged today Aspiration culture and Blood cultures -negativbe Advised discharge on Doxy for 21 days in total HYPERTENSION Initial BP in ED 168/119, repeat 160/92. Continue losartan/HCTZ. Follow and titrate therapy. SLEEP APNEA Intolerant of CPAP. DYSLIPIDEMIA Continue fenofibrate. MTHFR MUTATION Continue folic acid. VTE PROPHYLAXIS / HISTORY DVT History of MTHFR mutation. History of DVT left lower extremity associated with repair of Achilles tendon. Initial prophylaxis with SCDs and ambulation. Add prophylactic dose anticoagulant once surgical disposition determined. Will discharge home today RESUSCITATION STATUS Discussed with patient. No living will. Full code. DISPOSITION Admit to Med-Surg Unit. Expected discharge to home. Medical follow-up with Mg Jordan PA-C. . Vital Signs: Date Time Temp Pulse Resp B/P (MAP) Pulse Ox O2 Delivery O2 Flow Rate FiO2 01/09/17 15:16 36.4 53 18 177/85 (115) 97 Room Air 01/09/17 09:00 Room Air 01/09/17 07:41 36.9 59 18 151/96 (114) 97 Room Air 146/95 (112) 01/09/17 00:00 98 Room Air 01/08/17 22:52 37.0 57 18 135/88 (104) 98 Room Air 01/08/17 16:10 158/89 (112) 01/08/17 16:00 Room Air 01/08/17 15:32 36.7 55 20 167/102 (123) 100 Room Air Lab Results: Results Past 24 Hours Test 01/09/17 03:21 Range/Units White Blood Count 9.47 4.8-10.8 K/uL Red Blood Count 4.84 4.7-6.1 M/uL Hemoglobin 15.0 14.0-18.0 g/dL Hematocrit 43.2 42-52 % Mean Corpuscular Volume 89.3 80-100 fL Mean Corpuscular Hemoglobin 31.0 25-34 pg Mean Corpuscular Hemoglobin Concent 34.7 32-36 g/dl RDW Standard Deviation 40.6 36.4-46.3 fL RDW Coefficient of Variation 12.5 11.5-14.5 % Platelet Count 144 130-400 K/uL Mean Platelet Volume 11.4 7.4-10.4 fL Sodium Level 140 136-145 mmol/L Potassium Level 3.7 3.5-5.1 mmol/L Chloride Level 104 98-107 mmol/L Carbon Dioxide Level 31 21-32 mmol/L Anion Gap 5.0 3-11 mmol/L Blood Urea Nitrogen 10 7-18 mg/dl Creatinine 0.96 0.60-1.40 mg/dl Est Creatinine Clear Calc Drug Dose 107.3 ml/min Estimated GFR () 101.3 Estimated GFR (Non- 87.4 BUN/Creatinine Ratio 10.9 10-20 Random Glucose 130 70-99 mg/dl Calcium Level 8.8 8.5-10.1 mg/dl Vancomycin Level Trough 12.9 SEE COMMENT mcg/ml
[2017-01-09] MEDS: DOXYCYCLINE HYCLATE 100 MG CAP PO SCH (20:07)
[2017-01-09] MEDS: CITALOPRAM 20 MG TAB PO SCH (20:07)
[2017-01-10] VITALS: BP 137/85; PULSE 58; TEMP 37.6; O2SAT 98
[2017-01-10 06:39] LABS: CREATININE 1.1 mg/dl (0.60-1.40)
[2017-01-10 07:53] VITALS: BP_SYST 135; BP_SYST 163; BP_DIAS 101; BP_DIAS 93; PULSE 51; TEMP 36.6; O2SAT 100
[2017-01-10] MEDS: DOXYCYCLINE HYCLATE 100 MG CAP PO SCH (07:57)
[2017-01-10] MEDS: PANTOprazole SOD 40 MG TAB PO SCH (07:57)
[2017-01-10] MEDS: LOSARTAN/HCTZ 50-12.5 EA TAB PO SCH (07:57)
[2017-01-10] MEDS: ASPIRIN 81 MG ECTAB PO SCH (07:57)
[2017-01-10] MEDS: FENOFIBRATE 145 MG TAB PO SCH (07:57)
[2017-01-10] MEDS ORDERED: VANCOMYCIN TROUGH ONE (09:30)
--- NOTE | 2017-01-10 11:31 | Progress Note ---
Internal Med Progress Note Date of Service: Jan 10, 2017. Provider Documentation: SUBJECTIVE: The patient was seen and examined Right Knee pain,swelling and Redness are better Denies any Fever,Chills Clinically a lot better Ambulating well without much difficulty OBJECTIVE: Vital Signs-as noted below Exam: General-NO distress at rest Eyes-normal ENT-normal Neck-Supple Lungs-Clear to ausucltate bilaterally Heart-Regular,no murmur Abdomen-Benign,no masses,bowel sound present Extremities-Left Leg -OK Right Knee -minimal,swelling and minimal redness Neuro-AAOx3 Lab data as noted below. ASSESSMENT & PLAN: Right Knee Pain and Swelling with Cellulitis Knee joint seems to be spared S/P recent fall with injury to right patella Culture from right knee aspirate 01/06 pending. Suspect prepatellar bursitis. Worsening symptoms and exam despite outpatient therapy with cephalexin. Temp in ED was 38.1. WBC 12,920. Hemodynamically stable. Does not appear to be septic and doubt any Septic Arthritis Blood cultures obtained in ED and patient received IV vancomycin. Continue vancomycin and add ceftriaxone for gram-negative coverage. Consult Orthopedics and Infectious Disease-appreciate Input. Likely to be discharged today Aspiration culture and Blood cultures -negative Advised discharge on Doxy for 21 days in total Ambulating well without much difficulty Discharge today HYPERTENSION Initial BP in ED 168/119, repeat 160/92. Continue losartan/HCTZ. Follow and titrate therapy. A little high and expected to go down SLEEP APNEA Intolerant of CPAP. DYSLIPIDEMIA Continue fenofibrate. MTHFR MUTATION Continue folic acid. VTE PROPHYLAXIS / HISTORY DVT History of MTHFR mutation. History of DVT left lower extremity associated with repair of Achilles tendon. Initial prophylaxis with SCDs and ambulation. Add prophylactic dose anticoagulant once surgical disposition determined. Will discharge home today RESUSCITATION STATUS Discussed with patient. No living will. Full code. DISPOSITION Admit to Med-Surg Unit. Expected discharge to home. Medical follow-up with Mg Jordan PA-C. . Vital Signs: Date Time Temp Pulse Resp B/P (MAP) Pulse Ox O2 Delivery O2 Flow Rate FiO2 01/10/17 08:53 Room Air 01/10/17 07:53 36.6 51 18 163/101 (121) 100 Room Air 135/93 (107) 01/10/17 00:00 37.6 58 16 137/85 (102) 98 Room Air 01/10/17 00:00 Room Air 01/09/17 16:00 Room Air 01/09/17 15:16 36.4 53 18 177/85 (115) 97 Room Air Lab Results: Results Past 24 Hours Test 01/10/17 05:17 Range/Units Creatinine 1.10 0.60-1.40 mg/dl Est Creatinine Clear Calc Drug Dose 93.7 ml/min Estimated GFR () 85.9 Estimated GFR (Non- 74.1
[2017-01-10] MEDS ORDERED: LCTX PO (12:21)
[2017-01-10] MEDS ORDERED: DXY100 PO (12:21)
--- NOTE | 2017-01-10 12:24 | Discharge Instructions ---
Discharge Instructions Date of Service Jan 10, 2017. Admission Reason for Admission: Knee Pain Discharge Discharge Diagnosis / Problem: Right Prepatellar Bursitis with cellulitis Discharge Goals Goal(s): Prevent Disease Progression Activity Recommendations Activity Limitations: resume your previous activity . Instructions / Follow-Up Instructions / Follow-Up Appointment with Dr Jordan on 01/13/17 at 12:35 PM Current Hospital Diet Patient's current hospital diet: AHA Diet (Heart Healthy) Discharge Diet Recommended Diet: AHA Diet (Heart Healthy) Pending Studies Studies pending at discharge: no Medical Emergencies . Who to Call and When: Medical Emergencies: If at any time you feel your situation is an emergency, please call 911 immediately. . Non-Emergent Contact Non-Emergency issues call your: Primary Care Provider . Past History Medical & Surgical History: (1) Knee pain (2) Cellulitis of right knee (3) Hypertension (4) Dyslipidemia (5) History of renal calculi (6) GERD (gastroesophageal reflux disease) (7) Sleep apnea (8) MTHFR mutation (9) History of DVT of lower extremity (10) Status post cystoscopy (11) Status post Achilles tendon repair . "Provider Documentation" section prepared by Kuldeep Patterson. . Field Technical Specialist Recommendations Field Technical Specialist Recommendations: CONTINUE ANTIBIOTICS PER DR. LAWRENCE'S RECOMMENDATIONS WEIGHT BEAR TOLERATED, MAY USE WALKER/CRUTCHES IF NEEDED CAN FOLLOW UP NEEDED OR IF SYMPTOMS WORSEN. DR. SOFIA- [phone] VTE Core Measure Inpt VTE Proph given/why not?: SCD's
[2017-01-10 13:33] VITALS: BP 135/93; PULSE 51; TEMP 36.6; O2SAT 100
--- NOTE | 2017-01-11 09:26 | Discharge Summary ---
Discharge Summary Date of Service Jan 11, 2017. Discharge Summary Admission Date: Jan 08, 2017 at 02:44 Discharge Date: Jan 10, 2017 Discharge Disposition: Home Principal Diagnosis: Right Prepatellar Bursitis with cellulitis Secondary Diagnoses/Problems: Please see H&P and Hospital Progress note Consultations: ID and Ortho Medication Reconciliation New Medications: Lactobacillus Acidophilus (Lactinex) Tab 2 TAB PO BID, #80 TAB Doxycycline Hyclate (Doxycycline Hyclate) 100 Mg Cap 100 MG PO BID for 20 Days, #40 CAP Continued Medications: Aspirin (Aspirin Ec) 81 Mg Tab 81 MG PO DAILY Citalopram Hydrobromide (Citalopram Hydrobromide) 20 Mg Tab 1 TAB PO HS Fenofibrate (Tricor ) 145 Mg Tab 145 MG PO DAILY, TAB Folic Acid (Folvite) 1 Mg Tab 1 MG PO DAILY, TAB Hctz/Losartan (Hyzaar 12.5MG/50MG) Tab 1 TAB PO DAILY Omeprazole (Prilosec) 20 Mg Capcr 20 MG PO DAILY Admission Information HPI (per Admitting provider): 56-year-old male followed by Mg Jordan PA-C in [place]. History of hypertension, dyslipidemia, and other problems noted below. Fell 4 days prior to admission while playing with his grandchild at a playground and injured his right knee. No apparent abrasions or lacerations. Evaluated in ED at [facility] 2 days prior to admission. Referred to Dr. Kaba for Orthopedics consultation and was seen in his clinic yesterday. Right knee was aspirated and patent was placed on cephalexin. Aspirate demonstrated 60-49 WBCs (89% polys), 9000 RBCs. Gram stain demonstrated a few WBCs, no organisms. Culture results pending. Today he experienced worsening swelling and pain of the knee as well as fever and myalgias. Pain is severe and constant, aggravated by weightbearing or flexion. Minimal relief with ibuprofen. . Past Medical/Surgical History Chronic and Resolved Medical Problems: (2) Dyslipidemia Status: Chronic (3) GERD (gastroesophageal reflux disease) Status: Chronic (4) History of DVT of lower extremity Permanent Comment: 2013 - left lower extremity, associated with Achilles tendon repair Status: Chronic (5) History of renal calculi Status: Chronic (6) Hypertension Status: Chronic (7) MTHFR mutation Status: Chronic (8) Sleep apnea Status: Chronic Surgical Problems: (1) Status post Achilles tendon repair Status: Chronic (2) Status post cystoscopy Status: Chronic . Family History FATHER Coronary artery disease MOTHER Hypercholesterolemia Parkinson's disease Hypertension BROTHER Hypertension SISTER MTHFR deficiency Social History Smoking Status: Never Smoker Alcohol Use: none Marital Status: Immunizations History of Influenza Vaccine: Yes History of Tetanus Vaccine?: Yes Allergies Coded Allergies: Atenolol (Verified Allergy, Intermediate, bradycardia, 01/08/17) Lisinopril (Verified Allergy, Mild, cough, 01/08/17) Statins (Verified Adverse Reaction, Unknown, GENERALIZED PAIN, 01/08/17) Home Medications Scheduled Aspirin (Aspirin Ec), 81 MG PO DAILY Citalopram Hydrobromide (Citalopram Hydrobromide), 1 TAB PO DAILY Fenofibrate (Tricor ), 145 MG PO DAILY Folic Acid (Folvite), 1 MG PO DAILY Hctz/Losartan (Hyzaar 12.5MG/50MG), 1 TAB PO DAILY Omeprazole (Prilosec), 20 MG PO DAILY Review of Systems Constitutional: + fever, No weight loss Eyes: No worsening of vision, No diplopia ENT: + nasal symptoms, No sore throat Respiratory: No cough, No shortness of breath Cardiovascular: + edema (intermittent swelling left leg since DVT), No chest pain Abdomen: + nausea, No pain, No vomiting, No diarrhea, No GI bleeding Musculoskeletal: + joint pain (right knee), + muscle pain Genitourinary - Male: No hematuria, No dysuria Neurologic: + problem reported (occasional headaches) Endocrine: No excessive thirst, No excessive urination Hematologic / Lymphatic: No abnormal bleeding/bruising Integumentary: No rash, No new/changing skin lesions Physical Ex - H&P Physical Exam Vital Signs Date Time Temp Pulse Resp B/P (MAP) Pulse Ox O2 Delivery O2 Flow Rate FiO2 01/08/17 00:27 38.1 84 18 168/119 96 Room Air General Appearance: WD/WN, no apparent distress Head: normocephalic, atraumatic Eyes: normal inspection, PERRL, EOMI, sclerae normal (conjunctivae pink) ENT: normal ENT inspection, hearing grossly normal, pharynx normal Neck: supple, no adenopathy, thyroid normal, no JVD, trachea midline Respiratory/Chest: lungs clear, no respiratory distress, no accessory muscle use Cardiovascular: regular rate, rhythm, no edema, no gallop, no JVD, no murmur, normal peripheral pulses Abdomen/GI: normal bowel sounds, non tender, soft, no organomegaly, no pulsatile mass Extremities/Musculoskelatal: no calf tenderness, normal capillary refill, no pedal edema, + pertinent finding (moderate right prepatellar effusion with overlying erythema and warmth) Neurologic/Psych: framing consultant II-XII nml as tested (PERRL, EOMI; no facial palsy; no dysarthria), no motor/sensory deficits (motor strength upper and lower extremities grossly intact), alert, normal mood/affect, normal reflexes ( plantar reflexes downgoing), oriented x 3 Skin: warm/dry, + pertinent finding (intense erythema overlying right knee) Lymphatic: no adenopathy (cervical) Diagnostics - H&P Diagnostics Laboratory Results Results Past 24 Hours Test 01/08/17 00:45 Range/Units White Blood Count 12.92 4.8-10.8 K/uL Red Blood Count 5.11 4.7-6.1 M/uL Hemoglobin 15.9 14.0-18.0 g/dL Hematocrit 44.8 42-52 % Mean Corpuscular Volume 87.7 80-100 fL Mean Corpuscular Hemoglobin 31.1 25-34 pg Mean Corpuscular Hemoglobin Concent 35.5 32-36 g/dl Platelet Count 149 130-400 K/uL Mean Platelet Volume 10.8 7.4-10.4 fL Neutrophils (%) (Auto) 72.4 % Lymphocytes (%) (Auto) 14.6 % Monocytes (%) (Auto) 11.8 % Eosinophils (%) (Auto) 0.6 % Basophils (%) (Auto) 0.2 % Neutrophils # (Auto) 9.35 1.4-6.5 K/uL Lymphocytes # (Auto) 1.88 1.2-3.4 K/uL Monocytes # (Auto) 1.53 0.11-0.59 K/uL Eosinophils # (Auto) 0.08 0-0.5 K/uL Basophils # (Auto) 0.03 0-0.2 K/uL RDW Standard Deviation 39.9 36.4-46.3 fL RDW Coefficient of Variation 12.4 11.5-14.5 % Immature Granulocyte % (Auto) 0.4 % Immature Granulocyte # (Auto) 0.05 0.00-0.02 K/uL Sodium Level 138 136-145 mmol/L Potassium Level 3.6 3.5-5.1 mmol/L Chloride Level 103 98-107 mmol/L Carbon Dioxide Level 26 21-32 mmol/L Anion Gap 9.0 3-11 mmol/L Blood Urea Nitrogen 14 7-18 mg/dl Creatinine 1.10 0.60-1.40 mg/dl Est Creatinine Clear Calc Drug Dose 93.4 ml/min Estimated GFR () 85.9 Estimated GFR (Non- 74.1 BUN/Creatinine Ratio 12.3 10-20 Random Glucose 170 70-99 mg/dl Calcium Level 8.8 8.5-10.1 mg/dl Microbiology Results 01/08/17 Blood Culture, Received Pending 01/08/17 Blood Culture, Received Pending Impression - H&P Impression Assessment and Plan FEVER / RIGHT KNEE PAIN Suspect prepatellar bursitis. Worsening symptoms and exam despite outpatient therapy with cephalexin. Culture from right knee aspirate 01/06 pending. Temp in ED was 38.1. WBC 12,920. Hemodynamically stable. Does not appear to be septic. Blood cultures obtained in ED and patient received IV vancomycin. Continue vancomycin and add ceftriaxone for gram-negative coverage. Consult Orthopedics and Infectious Disease. HYPERTENSION Initial BP in ED 168/119, repeat 160/92. Continue losartan/HCTZ. Follow and titrate therapy. SLEEP APNEA Intolerant of CPAP. DYSLIPIDEMIA Continue fenofibrate. MTHFR MUTATION Continue folic acid. VTE PROPHYLAXIS / HISTORY DVT History of MTHFR mutation. History of DVT left lower extremity associated with repair of Achilles tendon. Initial prophylaxis with SCDs and ambulation. Add prophylactic dose anticoagulant once surgical disposition determined. RESUSCITATION STATUS Discussed with patient. No living will. Full code. DISPOSITION Admit to Med-Surg Unit. Expected discharge to home. Medical follow-up with Mg Jordan PA-C. . VTE Prophylaxis Given or contraindicated: SCD's Physical Exam (per Admitting): General Appearance: WD/WN, no apparent distress Head: normocephalic, atraumatic Eyes: normal inspection, PERRL, EOMI, sclerae normal (conjunctivae pink) ENT: normal ENT inspection, hearing grossly normal, pharynx normal Neck: supple, no adenopathy, thyroid normal, no JVD, trachea midline Respiratory/Chest: lungs clear, no respiratory distress, no accessory muscle use Cardiovascular: regular rate, rhythm, no edema, no gallop, no JVD, no murmur , normal peripheral pulses Abdomen/GI: normal bowel sounds, non tender, soft, no organomegaly, no pulsatile mass Extremities/Musculoskelatal: no calf tenderness, normal capillary refill, no pedal edema, + pertinent finding (moderate right prepatellar effusion with overlying erythema and warmth) Neurologic/Psych: framing consultant II-XII nml as tested (PERRL, EOMI; no facial palsy; no dysarthria), no motor/sensory deficits (motor strength upper and lower extremities grossly intact), alert, normal mood/affect, normal reflexes ( plantar reflexes downgoing), oriented x 3 Skin: warm/dry, + pertinent finding (intense erythema overlying right knee) Lymphatic: no adenopathy (cervical) Hospital Course Right Knee Pain and Swelling with Cellulitis Knee joint seems to be spared S/P recent fall with injury to right patella Culture from right knee aspirate 01/06 pending. Suspect prepatellar bursitis. Worsening symptoms and exam despite outpatient therapy with cephalexin. Temp in ED was 38.1. WBC 12,920. Hemodynamically stable. Does not appear to be septic and doubt any Septic Arthritis Blood cultures obtained in ED and patient received IV vancomycin. Continue vancomycin and add ceftriaxone for gram-negative coverage. Consult Orthopedics and Infectious Disease-appreciate Input. Likely to be discharged today Aspiration culture and Blood cultures -negative Advised discharge on Doxy for 21 days in total Ambulating well without much difficulty Discharge today HYPERTENSION Initial BP in ED 168/119, repeat 160/92. Continue losartan/HCTZ. Follow and titrate therapy. A little high and expected to go down SLEEP APNEA Intolerant of CPAP. DYSLIPIDEMIA Continue fenofibrate. MTHFR MUTATION Continue folic acid. VTE PROPHYLAXIS / HISTORY DVT History of MTHFR mutation. History of DVT left lower extremity associated with repair of Achilles tendon. Initial prophylaxis with SCDs and ambulation. Add prophylactic dose anticoagulant once surgical disposition determined. Will discharge home today RESUSCITATION STATUS Discussed with patient. No living will. Full code. DISPOSITION Admit to Med-Surg Unit. Expected discharge to home. Medical follow-up with Mg Nikki, PA-C. . Total time spent on discharge = 35 minutes This includes examination of the patient, discharge planning, medication reconciliation, and communication with other providers. Discharge Instructions Date of Service Jan 10, 2017. Admission Reason for Admission: Knee Pain Discharge Discharge Diagnosis / Problem: Right Prepatellar Bursitis with cellulitis Discharge Goals Goal(s): Prevent Disease Progression Activity Recommendations Activity Limitations: resume your previous activity . Instructions / Follow-Up Instructions / Follow-Up Appointment with Dr Jordan on 01/13/17 at 12:35 PM Current Hospital Diet Patient's current hospital diet: AHA Diet (Heart Healthy) Discharge Diet Recommended Diet: AHA Diet (Heart Healthy) Pending Studies Studies pending at discharge: no Medical Emergencies . Who to Call and When: Medical Emergencies: If at any time you feel your situation is an emergency, please call 911 immediately. . Non-Emergent Contact Non-Emergency issues call your: Primary Care Provider . Past History Medical & Surgical History: (1) Knee pain (2) Cellulitis of right knee (3) Hypertension (4) Dyslipidemia (5) History of renal calculi (6) GERD (gastroesophageal reflux disease) (7) Sleep apnea (8) MTHFR mutation (9) History of DVT of lower extremity (10) Status post cystoscopy (11) Status post Achilles tendon repair . "Provider Documentation" section prepared by Kuldeep Patterson. . Boilermaker Apprentice Recommendations Boilermaker Apprentice Recommendations: CONTINUE ANTIBIOTICS PER DR. LAWRENCE'S RECOMMENDATIONS WEIGHT BEAR TOLERATED, MAY USE WALKER/CRUTCHES IF NEEDED CAN FOLLOW UP NEEDED OR IF SYMPTOMS WORSEN. DR. SOFIA- [phone] VTE Core Measure Inpt VTE Proph given/why not?: SCD's <Electronically signed by Kuldeep Patterson M.D.> Additional Copies To Mg Jordan PA-C
== END 2017-01-10 14:00 | disposition home or self-care (01) | DRG 558 ==
LOC: C.EDB 00:19 → C.4E 02:44 → ENRESERV 03:21
PROVIDERS: ADMIT Hospitalist; ATTEND Internal Medicine
DX: M70.41 Prepatellar bursitis, right knee (principal); L03.115 Cellulitis of right lower limb; E72.12 Methylenetetrahydrofolate reductase deficiency; E78.5 Hyperlipidemia, unspecified; K21.9 Gastro-esophageal reflux disease without esophagitis; I10 Essential (primary) hypertension; G47.30 Sleep apnea, unspecified; Z79.82 Long term (current) use of aspirin; Z79.899 Other long term (current) drug therapy; Z86.718 Personal history of other venous thrombosis and embolism